=== PATIENT | female | born 1965 ===

== ENCOUNTER → 2020-11-10 | Outpatient (CLI) | payer MEDICAID | LOC: EDBD 09:30 → MC.RAD 09:30 | DX: Z12.31 Encounter for screening mammogram for malignant neoplasm of breast (principal); N63.20 Unspecified lump in the left breast, unspecified quadrant ==

== ENCOUNTER → 2020-11-16 | Outpatient (CLI) | payer MEDICAID | LOC: MC.RAD 12:41 | DX: R92.8 Other abnormal and inconclusive findings on diagnostic imaging of breast (principal) ==

== ENCOUNTER 2021-06-30 14:15 | Outpatient (RCR) | payer MEDICAID | END 2021-07-02 | disposition home or self-care (01) | LOC: MKS.ESL.PT | DX: M21.962 Unspecified acquired deformity of left lower leg (principal); G89.29 Other chronic pain ==

== ENCOUNTER 2021-07-28 15:45 | Outpatient (RCR) | payer MEDICAID | END 2021-08-02 | disposition home or self-care (01) | LOC: MKS.ESL.PT | DX: M25.569 Pain in unspecified knee (principal); G89.29 Other chronic pain ==

== ENCOUNTER → 2021-09-01 | Outpatient (RCR) | payer MEDICAID | END | disposition home or self-care (01) | LOC: MKS.ESL.PT | DX: M21.962 Unspecified acquired deformity of left lower leg (principal); G89.29 Other chronic pain ==

== ENCOUNTER 2021-09-13 13:30 | Outpatient (RCR) | payer MEDICAID | END 2021-10-02 | disposition home or self-care (01) | LOC: MKS.ESL.PT | DX: M21.962 Unspecified acquired deformity of left lower leg (principal); G89.29 Other chronic pain ==

== ENCOUNTER 2022-04-16 13:34 | Emergency (ER) | payer MEDICAID ==
[~2022-04-16] VITALS: Ht 154.9 cm; Wt 68.2 kg
[2022-04-16 13:36] VITALS: TEMP 98.7
[2022-04-16] MEDS ORDERED: PRINIVIL10 MG PO (14:34)
[2022-04-16] MEDS ORDERED: ASPIRIN 81M81 MG/TA2 PO (14:35)
[2022-04-16] MEDS ORDERED: FLEXERIL5 MG PO (15:48)
[2022-04-16 15:58] VITALS: BP 147/88; PULSE 78
== END 2022-04-16 15:59 | disposition home or self-care (01) ==
LOC: COL.ER 13:34
DX: M79.652 Pain in left thigh (principal); Z79.82 Long term (current) use of aspirin; Z28.310 Unvaccinated for COVID-19
CPT/HCPCS: J1885

== ENCOUNTER 2022-04-16 21:00 | Emergency (ER) | payer MEDICAID ==
[~2022-04-16] VITALS: Ht 154.9 cm; Wt 68.2 kg
[~2022-04-16 21:00] MED LIST: ASPIRIN 81M81 MG/TA2 PO; FLEXERIL5 MG PO; PRINIVIL10 MG PO
[2022-04-16 21:05] VITALS: TEMP 98
[2022-04-16 22:00] VITALS: BP 127/81; PULSE 80
== END 2022-04-16 22:00 | disposition home or self-care (01) ==
LOC: COL.ER 21:00
DX: M79.652 Pain in left thigh (principal); Z28.310 Unvaccinated for COVID-19